=== PATIENT | female | born 1930 | race Caucasian/White ===

== ENCOUNTER 2018-09-29 16:02 | Emergency (ER) | payer OTHER ==
[~2018-09-29] VITALS: Ht 170.2 cm; Wt 82.0 kg
[2018-09-29] MEDS ORDERED: ESOM20CA PO (16:34)
[2018-09-29] MEDS ORDERED: OXYC-307 PO (16:34)
[2018-09-29] MEDS ORDERED: CARV12.52 PO (16:35)
[2018-09-29] MEDS ORDERED: AMLO2.5T3 PO (16:35)
[2018-09-29] MEDS ORDERED: FLUT15OI2 INFIL (16:36)
[2018-09-29] MEDS ORDERED: CHOL400T55 PO (16:37)
[2018-09-29] MEDS ORDERED: OXYcodone/APAP 5/325MG TABLET ONE (16:44)
[2018-09-29] MEDS ORDERED: ACETAMINOPHEN 325 MG TABLET ONE (16:44)
[2018-09-29 16:50] LABS: BASOPHILS # (AUTO) 0.06 x10^3/uL (0-0.1); BASOPHILS % (AUTO) 1 % (0-1); EOSINOPHILS # (AUTO) 0.04 x10^3/uL (0-0.4); EOSINOPHILS % (AUTO) 1 % (1-7); LYMPHOCYTES # (AUTO) 1.49 x10^3/uL (1-3.4); LYMPHOCYTES % (AUTO) 17 % (22-44); MD NO; MEAN CORPUSCULAR HEMOGLOBIN 30.1 pg (27.0-34.8); MEAN CORPUSCULAR HGB CONC 33.7 g/dL (32.4-35.8); MEAN CORPUSCULAR VOLUME 89.3 fL (80-100); MEAN PLATELET VOLUME 9.3 fL (7.4-10.4); MONOCYTES # (AUTO) 0.93 x10^3/uL (0.2-0.8); MONOCYTES % (AUTO) 11 % (2-9); NEUTROPHILS # (AUTO) 6.23 x10^3/uL (1.8-6.8); NEUTROPHILS % (AUTO) 71 % (42-75); PLATELET COUNT 147 x10^3/uL (130-400); RED BLOOD COUNT 4.71 x10^6/uL (3.82-5.3); RED CELL DISTRIBUTION WIDTH 14.5 % (9.6-15.2)
[2018-09-29] MEDS ORDERED: OXYcodone/APAP 5/325MG TABLET PO ONE (17:00)
[2018-09-29] MEDS ORDERED: ACETAMINOPHEN 325 MG TABLET PO ONE (17:00)
[2018-09-29 17:03] LABS: ALBUMIN 3.7 g/dL (3.4-5.0); ANION GAP 9 mmol/L (5-15); CALCIUM 8.7 mg/dL (8.5-10.1); CHLORIDE 107 mmol/L (98-107); CREATININE 0.87 mg/dL (0.55-1.02)
[2018-09-29 17:05] LABS: MICROSCOPIC AUTO
[2018-09-29 17:07] LABS: TROPONIN I < 0.015 ng/mL (0.000-0.045)
[2018-09-29 17:10] LABS: CULTURE INDICATED? YES
[2018-09-29] MEDS ORDERED: CEFDINIR 300 MG CAPSULE PO ONE (17:30)
[2018-09-29] MEDS ORDERED: CEFDINIR 300 MG CAPSULE ONE (17:39)
[2018-09-29 17:49] VITALS: BP 188/88
== END 2018-09-29 17:51 | disposition home or self-care (01) ==
LOC: ED 16:53
DX: N30.00 Acute cystitis without hematuria (principal); I10 Essential (primary) hypertension
CPT/HCPCS: 36415; 71045; 80048; 81001; 82040; 83880; 84484; 85025; 87086; 93005; 99285